=== PATIENT | female | born 1990 | race Caucasian/White ===

== ENCOUNTER 2023-01-07 20:53 | Emergency (ER) | payer OTHER ==
[2023-01-07 21:04] VITALS: BP 118/73; PULSE 61; RESP 18; TEMP 98.1; BMI 19.5
[2023-01-07] MEDS ORDERED: ACETAMINOPHEN 1000 MG/100 ML BAG IVPB ONE (21:59)
[2023-01-07] MEDS ORDERED: ACETAMINOPHEN 325 MG TABLET (FP) PO ONE (22:01)
[2023-01-07] MEDS ORDERED: ACETAMINOPHEN 325 MG TABLET (FP) ONE (22:04)
[2023-01-07 22:13] LABS: BASO % 0.4 % (0-2.0); HEMATOCRIT 36.7 % (32.4-45.2); HEMOGLOBIN 12.2 GM/dL (10.7-15.3); LYMPH % 34.9 % (8-40); MCH 27.6 pg (25.7-33.7); MCHC 33.3 g/dl (32.0-36.0); MEAN CELL VOLUME 82.8 fl (80-96); MEAN PLT VOLUME 6.8 fl (7.5-11.1); MONO % 6.2 % (3.8-10.2); NEUT % 54.5 % (42.8-82.8); PLATELET COUNT 202 10^3/uL (134-434); RBC 4.43 M/mm3 (3.60-5.2); RDW 14.4 % (11.6-15.6); WHITE BLOOD COUNT 7.6 K/mm3 (4.0-10.0)
[2023-01-07 22:29] LABS: POTASSIUM 4.1 mmol/L (3.5-5.1)
[2023-01-07 22:30] LABS: CALCIUM 9.1 mg/dL (8.5-10.1)
[2023-01-07 22:31] LABS: BLOOD UREA NITROGEN 12.2 mg/dL (7-18)
[2023-01-07 22:34] LABS: CREATININE 0.8 mg/dL (0.55-1.3)
== END 2023-01-08 03:16 | disposition home or self-care (01) ==
LOC: JER 20:53 → JERFT 20:53 → JER 01-08 03:16
DX: N61.0 Mastitis without abscess (principal); N64.4 Mastodynia; N63.0 Unspecified lump in unspecified breast; R50.9 Fever, unspecified; R51.9 Headache, unspecified; R09.81 Nasal congestion
CPT/HCPCS: 36415; 76642-TC-RT; 80048; 85025; 99284-25